=== PATIENT | female | born 1965 | race Caucasian/White ===

== ENCOUNTER 2024-07-30 08:17 | Inpatient (IN) | payer MEDICAID, SELFPAY ==
[2024-07-30] VITALS (19 sets, daily range): BP systolic 107–180; BP diastolic 62–132; PULSE 60–113; RESP 11–19; TEMP 36–37; O2SAT 79–100; BMI 30.9
--- NOTE | 2024-07-30 08:32 | W.ED.GENAD ---
Discharge Plan Disposition Patient Disposition: Admit to [facility] Discharge Details Clinical Impression: Food impaction of esophagus Attending Provider: Ryan Perry Primary Care Provider: None,None ED Provider: Denny Khoury [facility] General Date/Time Provider Initiated Documentation: 07/30/24 08:32. HPI Narrative: MDM This is an overall very well-appearing normothermic and nontachycardic 59-year-old female with nausea vomiting foreign body sensation concerning for esophageal food impaction for which patient well COVID general surgery for EGD. She is handling her secretions. Her labs are within normal limits. She has no pain out of proportion to suggest necrotizing soft tissue infection. Patient received ondansetron. Will defer glucagon and effervescent beverages. I considered ACS however pain is most likely secondary to her food bolus. No fevers to suggest pneumonia. No rash to abdomen to suggest zoster. Not an alcoholic to suggest pancreatitis. No abdominal pain to suggest intra-abdominal infection so I did not feel that the patient required a CT scan. I discussed patient's care with Dr. Steele who graciously agreed to accept the patient to day surgery. HPI This is a previously healthy 59-year-old female arrived to the emergency department via private vehicle in the setting of nausea and vomiting that began last night. Patient says she has been unable to keep down water. She has had similar symptoms in the past but they have generally resolved on their own. Last night she tried eating some steak and potatoes. She has been unable to drink any liquids subsequently. She is having no abdominal pain. Exam General: Well-appearing in no acute distress speaking in complete sentences. Head: Normocephalic, atraumatic. Eye: Extraocular eye movements intact. No conjunctival injection. No scleral icterus. Ear, nose, mouth, throat: Grossly normal inspection. Normal voice, handling secretions normally. Neck: Trachea midline. Cardiovascular: Well-perfused distal extremities. Respiratory: Nonlabored respiration. Clear lungs Gastrointestinal: Nondistended abdomen. Soft nontender abdomen. Musculoskeletal: No edema. Moving all 4 extremities spontaneously. Skin: Normal for age and race, grossly normal temperature and turgor. No acute rash. Neurologic: Alert and appropriate, no apparent acute deficits. Psychiatric: Mood and manner are appropriate. Grooming and personal hygiene are appropriate. Related Data Home Medications ?Medication ?Instructions ?Recorded ?Confirmed Unknown [No Known Home Meds] 05/24/14 07/30/24 Allergies Allergy/AdvReac Type Severity Reaction Status Date / Time niacin Allergy Unknown Unknown Unverified 07/30/24 10:29 Penicillins Allergy Skin Rash Unverified 07/30/24 10:29 General Stated Complaint: ThroatFB DARVIN: 3 Course Vital Signs Vital signs: Vital Signs Temperature 36.9 C 07/30/24 08:28 Pulse 80 07/30/24 08:28 Respiratory Rate 18 07/30/24 08:28 Blood Pressure 178/100 H 07/30/24 08:28 Pulse Oximetry 98 07/30/24 08:28 Temperature 36.9 C 07/30/24 08:28 Temperature Source Oral 07/30/24 08:28 Pulse 80 07/30/24 08:28 Respiratory Rate 18 07/30/24 08:28 Blood Pressure 178/100 H 07/30/24 08:28 Blood Pressure Position Sitting 07/30/24 08:28 Pulse Oximetry 98 07/30/24 08:28 Oxygen Delivery Method Room Air 07/30/24 08:28 Oxygen Flow Rate 0 07/30/24 08:28 Pain Level 6 07/30/24 08:28 Medical Decision Making Quality:SDOH Health Related Social Needs: No Data to Display PFSH All Active Problems Distal esophageal obstruction due to foreign body (Acute) Esophageal foreign body (Acute) Medical History Migraines HTN (hypertension) Surgical History H/O excision of ganglion cyst H/O: hysterectomy Social History Smoking/Tobacco Use Status: Never Smoking risk assessment performed?: Yes Alcohol Intake: current Alcohol Intake frequency: a few times a month Alcohol type: beer Drug use: Never Substance use type: does not use Do you feel safe at home: Yes Do you feel safe in your relationship?: Yes
[2024-07-30 09:00] LABS: BUN 11 mg/dL (7-18); Calcium 9.1 mg/dL (8.5-10.1); Chloride 107 mmol/L (98-107); Estimated GFR 64.09 (mL/min/1.73m2); Glucose 122 mg/dL (74-106); Potassium 3.8 mmol/L (3.5-5.1); Sodium 143 mmol/L (136-145)
[2024-07-30 09:10] LABS: Abs Immature Grans 0.02 10^3/uL (0.0-0.06); Absolute Basophil Count 0.01 10^3/uL (0.0-0.2); Absolute Eosinophil Count 0.14 10^3/uL (0.0-0.7); Absolute Lymphocyte Count 2.45 10^3/uL (1.2-3.4); Absolute Monocyte Count 0.45 10^3/uL (0.1-0.8); Absolute Neutrophil Count 5.76 10^3/uL (1.2-6.7); Basophils % 0.1 %; Eosinophils % 1.6 %; HCT 42.7 % (36.0-46.0); HGB 13.6 g/dL (11.2-15.7); Immature Grans % 0.2 %; Lymphocytes % 27.7 %; MCH 28.8 pg (27.0-33.0); MCHC 31.9 % (32.0-36.0); MCV 91 fL (80-95); MPV 10.1 fL (8.0-11.0); Monocytes % 5.1 %; Neutrophils % 65.3 %; Platelet Count 228 10^3/uL (130-400); RBC 4.72 10^6/uL (3.93-5.22); RDW 12.6 % (11.7-14.6); RDW-SD 41.9 fL; WBC 8.83 10^3/uL (4.4-10.8)
--- NOTE | 2024-07-30 09:30 | W.PM.HP.N ---
Date of service: 07/30/24 Time of Service: 09:30 Assessment and Plan Assessment and plan (1) Esophageal foreign body: Status: Acute Assessment and plan: Informed consent is obtained for the procedural (explained in simple layman's terms that the pt. and/or family could understand) explaining risks vs benefits and alternatives to the procedure and consequences if we do not do the procedure and need/rational for the procedure. Risks include but are not limited to: bleeding, infection, perforation of esophagus, stomach, colon, small intestines, bronchus or trachea, or PTX. This would necessitate emergency surgery to repair the damage w/ possible ostomy; and other associated complications w/ the required surgery. Also complications of anesthesia including aspiration, RI/CVA/. Depending on what we find today we may or may not admit her postoperatively for IV hydration and PPI. Patient states she has been unable to tolerate liquids since yesterday. (2) Distal esophageal obstruction due to foreign body: Status: Acute History of Present Illness Narrative: Patient came to the ER today complaining of pain and difficulty swallowing. She states that this has been coming on for over a year. Today it has become so severe that she cannot swallow and cannot handle her secretions and is spitting into a bag. She denies that it is food impaction. She states that she has been having problems swallowing for and being able to swallow food for quite some time. She is losing weight. She has not noticed any blood in her stools. She said she spit up a little blood yesterday. She takes ibuprofen on a semiregular basis but not every day. She does have a lot of problems with headaches. She is a former smoker but was very casually and states she maybe smoked 2 packs her whole life. She does drink alcohol on a again on a maybe every other day basis. She was using Gummies on a semiregular basis but not has not used them recently. She is new to the [facility] and has not established any health care. She was on metoprolol when she lived in [place] but has not continued this medication. She thinks she was on it for her blood pressure. It may have been for palpitations. She is not currently on any medications. Past surgical history significant for , cyst removal from her foot and reconstruction on her right hand after a cat bite. She denies any problems with anesthesia. She denies heart attack or stroke. She denies being diabetic. She denies any asthma or sleep apnea. Review of Systems All systems reviewed & are unremarkable except as noted in HPI and below PFSH All Active Problems Distal esophageal obstruction due to foreign body (Acute) Esophageal foreign body (Acute) Medical History Migraines HTN (hypertension) Surgical History H/O excision of ganglion cyst H/O: hysterectomy Social History Smoking/Tobacco Use Status: Never Smoking risk assessment performed?: Yes Alcohol Intake: current Alcohol Intake frequency: a few times a month Alcohol type: beer Drug use: Never Substance use type: does not use Do you feel safe at home: Yes Do you feel safe in your relationship?: Yes Meds Allergies and Home Medications Allergies Allergy/AdvReac Type Severity Reaction Status Date / Time niacin Allergy Unknown Unknown Unverified 07/30/24 10:29 Penicillins Allergy Skin Rash Unverified 07/30/24 10:29 Home Medications ?Medication ?Instructions ?Recorded ?Confirmed ?Type Unknown [No Known Home Meds] 05/24/14 07/30/24 History Exam Narrative Exam Narrative: PHYSICAL EXAM GENERAL APPEARANCE: Alert, healthy appearance, oriented, x 3,? in no acute distress HYDRATION: Well hydrated HEAD, EYES, EARS, NECK, THROAT: Head is normocephalic, pupils equal, round, reactive to light and accommodation, ocular movement intact, sclera clear and no jaundice. ?Dentition intact. LUNGS: normal respiration/normal chest excursion. ?Clear to auscultation bilaterally. ?No wheeze. ?HEART: Regular rate and rhythm. no murmurs ABDOMEN: soft and non-tender to palpation.? Normal bowel sounds.? She is not able to swallow her secretions and is spitting up in 2 EyeBag constantly. Results Labs 07/30/24 08:30 07/30/24 08:30 Labs: Laboratory Results - last 24 hr 07/30/24 08:30 WBC 8.83 RBC 4.72 Hgb 13.6 Hct 42.7 MCV 91 MCH 28.8 MCHC 31.9 L RDW 12.6 Plt Count 228 MPV 10.1 Immature Gran % 0.2 Neutrophils % 65.3 Lymphocytes % 27.7 Monocytes % 5.1 Eosinophils % 1.6 Basophils % 0.1 Nucleated RBC % 0.0 Absolute Neutrophils 5.76 Absolute Lymphocytes 2.45 Absolute Monocytes 0.45 Absolute Eosinophils 0.14 Absolute Basophils 0.01 Sodium 143 Potassium 3.8 Chloride 107 Carbon Dioxide 26.0 Anion Gap 10.0 BUN 11 Creatinine 1.0 Est GFR (CKD-EPI 2020) 64.09 Glucose 122 H Calcium 9.1 Last Vital Signs Temp 36.9 C 07/30/24 08:28 Pulse 80 07/30/24 08:28 Resp 18 07/30/24 08:28 BP 178/100 H 07/30/24 08:28 Pulse Ox 98 07/30/24 08:28 PAWSS Have you Been Recently Intoxicated or Drunk Within the Last 30 days?: No Have you Ever Experienced Previous Episodes of Alcohol Withdrawal?: No Have you ever Experienced Withdrawal Seizures?: No Have you ever Experienced Delirium Tremens(DT)s?: No Have you ever undergone Alcohol Rehabilitation Treatment (i.e, inpt ot outpatient treatment programs)?: No Have you ever Experienced Blackouts?: No Have you ever Combined Alcohol with other Downers within the last 90 days?: No Have you ever Combined Alcohol with any other Substance of Abuse during the last 90 days?: No Positive Blood Alcohol level on Presentation? [PCS.BAL]: No Evidence of Increased Autonomic Activity (i.e. HR>120, tremor, sweating, agitation, nausea)?: No Result: 0 Time Spent Time spent with Patient: 40-54 minutes Time was spent: preparing to see the patient(eg.review tests), obtaining and/or reviewing separately otained hiistory, ordering medications,tests, procedures, referring, communicating with other health customer care professional, indepentently interpreting results, counseling the patient, care coordination and other
[2024-07-30] MEDS: Ondansetron 4 MG/2 ML VIAL IVP (09:39)
[2024-07-30] MEDS: Normal Saline Flush 10 ML SYR IVP ×3 (10:44→20:46)
[2024-07-30] MEDS: Normal Saline 500 ML 80 ML IV (10:44)
[2024-07-30] MEDS: Pantoprazole 40 MG VIAL IVP ×2 (10:58→20:39)
--- NOTE | 2024-07-30 11:34 | ANES.PREOP_ITS ---
General Info Date of Service Date Performed: 07/30/24 Height: 5 ft 4 in Weight: 81.647 kg Body Mass Index (BMI): 30.9 Surgical Procedure: Operation Date: 07/30/24 10:05 Proposed Procedure Side Surgeon p Gastroscopy/Removal Foreign Body Sailaja Steele, DO Actual Procedure Side Surgeon p Gastroscopy/Removal Foreign Body Sailaja Steele, DO Pre-Op Diagnosis Post-Op Diagnosis Esophageal foreign body Meds Allergies and Home Medications Allergies Allergy/AdvReac Type Severity Reaction Status Date / Time niacin Allergy Unknown Unknown Unverified 07/30/24 10:29 Penicillins Allergy Skin Rash Unverified 07/30/24 10:29 Home Medication ?Medication ?Instructions ?Recorded Unknown [No Known Home Meds] 05/24/14 Current Visit Medications: Current Medications Generic Name Dose Route Start Last Admin Trade Name Freq PRN Reason Stop Dose Admin Sodium Chloride 500 mls @ 80 mls/hr 07/30/24 10:15 07/30/24 10:44 Saline 500ml Bag IV 80 mls/hr INFUSION AYAN Administration IV Miscellaneous Supplies 1 each 07/30/24 10:15 Iv Access IV DIRECTED AYAN Sodium Chloride 0 ml 07/30/24 10:09 07/30/24 10:58 Normal Saline Flush 10 Ml Syr IVP 10 ml PRN PRN Administration Sodium Chloride 0 ml 07/30/24 20:00 Normal Saline Flush 10 Ml Syr IVP BID AYAN Sodium Chloride 0 ml 07/30/24 10:09 Normal Saline 10 Ml Vial IJ DIRECTED PRN PFSH Active Problems Active Problems: Problem Status Onset Code Distal esophageal obstruction due to foreign body Acute T18.108A, W44.9XXA Esophageal foreign body Acute T18.108A Medical History Medical History Migraines HTN (hypertension) Surgical History Surgical History H/O excision of ganglion cyst H/O: hysterectomy Tobacco Smoking/Tobacco Use Status: Never Alcohol Alcohol Intake: current Alcohol intake frequency: a few times a month Alcohol type: beer Substance Use Substance use: Never Substance use type: does not use Vital Signs and Lab Results Vital Signs Most Recent Vital Signs in EMR: Most Recent Vital Signs Temp Pulse Resp BP Pulse Ox 36.4 C L 65 18 164/79 H 96 07/30/24 10:30 07/30/24 10:30 07/30/24 10:30 07/30/24 10:30 07/30/24 10:30 Lab Results 07/30/24 08:30 07/30/24 08:30 Blood Type / Crossmatch: 2 No Data to Display Complete Blood Count: 2 White Blood Count 8.83 10^3/uL (4.4-10.8) 07/30/24 08:30 Red Blood Count 4.72 10^6/uL (3.93-5.22) 07/30/24 08:30 Hemoglobin 13.6 g/dL (11.2-15.7) 07/30/24 08:30 Hematocrit 42.7 % (36.0-46.0) 07/30/24 08:30 Platelet Count 228 10^3/uL (130-400) 07/30/24 08:30 Complete Metabolic Panel: 2 Sodium 143 mmol/L (136-145) 07/30/24 08:30 Potassium 3.8 mmol/L (3.5-5.1) 07/30/24 08:30 Chloride 107 mmol/L (98-107) 07/30/24 08:30 Carbon Dioxide 26.0 mmol/L (21.0-32.0) 07/30/24 08:30 BUN 11 mg/dL (7-18) 07/30/24 08:30 Creatinine 1.0 mg/dL (0.55-1.02) 07/30/24 08:30 Est GFR (CKD-EPI 2020) 64.09 (mL/min/1.73m2) 07/30/24 08:30 Calcium 9.1 mg/dL (8.5-10.1) 07/30/24 08:30 Glucose 122 mg/dL (74-106) H 07/30/24 08:30 Liver Function Panel: 2 No Data to Display Coagulation Panel: 2 No Data to Display Cardiac Panel: 2 No Data to Display Arterial Blood Gas: 2 No Data to Display Venous Blood Gas: 2 No Data to Display Pancreas Panel: 2 No Data to Display Thyroid Panel: 2 No Data to Display Infectious Disease: 2 No Data to Display Blood Cultures: 2 No Data to Display Toxicology Panel: 2 No Data to Display Anesthesia Assessment and Plan Anesthesia History Personal History: No History of Anesthesia Complications Family History: Other Exercise Tolerance Exercise Tolerance: Metabolic Equivalents>4 Pertinent Negatives Pertinent Negatives: No Major Cardiovascular Symptoms or Complaints, No Major Pulmonary Symptoms or Complaints and No History of CVA/TIA Cardiac & Pulmonary Exam Cardiac Exam: Normal S1/S2 Heart Sounds Pulmonary Exam: Clear Bilateral Breath Sounds Implantable Cardiac Device Does patient have a Pacemaker or an ICD?: No Airway Exam Known Difficult Airway: No Mallampati Class: 2 Mouth Opening: Normal (> 3cm) Thyromental Distance: Greater than 3 cm Neck Range of Motion: Full ROM Neck Circumference: Normal Teeth Condition: Normal Dentition ASA Classification ASA Score: ASA 2 Emergency Case?: Yes NPO Status NPO Status: Full Stomach Anesthesia Plan Resuscitation Status: Full Code Anesthesia Technique: General Anesthesia Airway Planned: Endotracheal Tube Monitors Used: Standard Monitors
--- NOTE | 2024-07-30 13:03 | STOM_PTH ---
PATIENT: Gema Gant LOC: [facility]#:[id number] AGE/SX: 59/F ROOM: RE07/30/[address]: Ryan Perry MD : 1965 BED: A DIS: 07/31/2024 SPEC #: [id number] RECD: 07/30/24 16:15 STATUS: DARIAN GRAJEDA #: [id number] MARISSA: 07/30/24 13:[address]: Ryan Perry DEPT: Surgical Specimen RECD BY: Malka Cash ENTERED: 07/30/24 17:04 SP TYPE: STOMACH OTHR DR: Sailaja Crenshaw Tissues: 1 - BIOPSY BOWEL 2 - STOMACH BIOPSY 3 - STOMACH BIOPSY 4 - ESOPHAGUS BIOPSY 5 - ESOPHAGUS BIOPSY Procedures: GROSS AND MICRO LEVEL 4 Comments: [id number]
[2024-07-30] MEDS: FLUCONAZOLE 200 MG/100 ML BAG 100 MG IVPB (13:10)
--- NOTE | 2024-07-30 14:37 | W.ANESPOSTOP ---
Postoperative Evaluation Date, Time and Location Date Performed: 07/30/24 Time Performed: 14:37 Patient Location: Day Surgery Unit Vital Signs Most Recent Imported Vital Signs: Most Recent Vital Signs Temp Pulse Resp BP Pulse Ox 36.0 C L 60 19 136/71 97 07/30/24 14:25 07/30/24 14:25 07/30/24 14:25 07/30/24 14:25 07/30/24 14:25 Pain Score Most Recent Pain Score: Most Recent Pain Score Pain Level 0 07/30/24 14:25 Assessment Mental Status: Awake (Alert & Oriented to Patient Baseline) Airway and Respiratory Function: Patent airway with normal (patient baseline) respiratory exam Cardiovascular Function: Hemodynamically Stable Hydration Status: Adequately Hydrated Nausea & Vomiting: No Nausea or Vomiting Pain: Pt. Denies Any Pain Peripheral Nerve Block: Patient did not receive a nerve block Postoperative Comments:: Discussed split upper right lip from intubation. Patient aware that airway was filling with saliva and food particulate and I was moving fast. Dsicussed care. Patient cleared to go to floor.
--- NOTE | 2024-07-30 15:26 | PHA.REVIEW2 ---
Pharmacy Admission Review Admission Clinical Review Admission Pharmacy Review: Distal esophageal obstruction due to foreign body (Acute) Esophageal foreign body (Acute) niacin Allergy (Unknown, Unverified 07/30/24 10:29) Unknown Penicillins Allergy (Unverified 07/30/24 10:29) Skin Rash Resuscitation Status Full Code Height 5 ft 4 in Weight 81.647 kg Pharmacy Admission Review Renal Dosing Renal Dosing: BUN 11 mg/dL (7-18) 07/30/24 08:30 Creatinine 1.0 mg/dL (0.55-1.02) 07/30/24 08:30 Medications needing adjustments: Reviewed (CrCl 61.07 mL/min) List of meds needing interventions: Current medications are okay Anticoagulation Anticoagulation: Hgb 13.6 g/dL (11.2-15.7) 07/30/24 08:30 Hct 42.7 % (36.0-46.0) 07/30/24 08:30 Plt Count 228 10^3/uL (130-400) 07/30/24 08:30 Creatinine 1.0 mg/dL (0.55-1.02) 07/30/24 08:30 DVT Prophylaxis: Reviewed (SCDs - POD#0) Opiate Usage Evaluate Pain Scale/Pains Meds: Reviewed (morphine 2mg IVP PRN - no doses give so far) Relevant Labs Relevant Labs: Sodium 143 mmol/L (136-145) 07/30/24 08:30 Potassium 3.8 mmol/L (3.5-5.1) 07/30/24 08:30 Chloride 107 mmol/L (98-107) 07/30/24 08:30 Electrolytes, C-Reactive P, ESR: Reviewed (glucose 122 at 0830) Cardiac Review BP, HR, EF%: Reviewed (BP and HR WNL) QTc Review QTc: Reviewed (No EKG on file) IV to PO Switch IV Medications: Reviewed (APAP, morphine, ondansetron and pantoprazole) Home Meds Home Med List reviewed: Reviewed Relevent Home Meds Not ordered & why?: No known home meds Current Meds Current Medication Order Review: Reviewed
[2024-07-30] MEDS: Normal Saline 1,000 ML 75 ML IV (18:54)
[2024-07-30] MEDS: ACETAMINOPHEN 1,000 MG/100 ML BAG 400 MG IVPB (19:36)
[2024-07-31 06:55] VITALS: BP 108/73; PULSE 60; RESP 16; TEMP 36.9; O2SAT 98
[2024-07-31] MEDS: Normal Saline 1,000 ML 75 ML IV (07:23)
--- NOTE | 2024-07-31 07:26 | W.PM.PROGNOT ---
Date of Service Date of service: 07/31/24 Time of Service: 07:26 Assessment and Plan Assessment and plan (1) Esophageal foreign body: Status: Acute Assessment and plan: POD #1 s/p EGD Sucralfate slurry ordered. Will advance to full liquid diet Activity as tolerated. Will d/c home later today. Will continue PPI and sulcralfate tx upon discharge. (2) Distal esophageal obstruction due to foreign body: Status: Acute Subjective Subjective Interval history since last seen: Arrived with Gema eating a popsicle. She states overall she is doing okay this morning. She is eager to have more to eat, she is hungry. Exam Const General: cooperative, healthy appearing and comfortable Orientation: alert and oriented x3 Resp Effort & Inspection: normal respiratory effort, no audible wheezes and no cough GI Inspection: normal to inspection and non-distended Palpation: soft, no guarding and nontender Objective Last Vital Signs Temp 36.9 C 07/31/24 06:55 Pulse 60 07/31/24 06:55 Resp 16 07/31/24 06:55 BP 108/73 07/31/24 06:55 Pulse Ox 98 07/31/24 06:55 Laboratory Results - last 24 hr 07/30/24 08:30 WBC 8.83 RBC 4.72 Hgb 13.6 Hct 42.7 MCV 91 MCH 28.8 MCHC 31.9 L RDW 12.6 Plt Count 228 MPV 10.1 Immature Gran % 0.2 Neutrophils % 65.3 Lymphocytes % 27.7 Monocytes % 5.1 Eosinophils % 1.6 Basophils % 0.1 Nucleated RBC % 0.0 Absolute Neutrophils 5.76 Absolute Lymphocytes 2.45 Absolute Monocytes 0.45 Absolute Eosinophils 0.14 Absolute Basophils 0.01 Sodium 143 Potassium 3.8 Chloride 107 Carbon Dioxide 26.0 Anion Gap 10.0 BUN 11 Creatinine 1.0 Est GFR (CKD-EPI 2020) 64.09 Glucose 122 H Calcium 9.1 PAWSS Have you Been Recently Intoxicated or Drunk Within the Last 30 days?: No Have you Ever Experienced Previous Episodes of Alcohol Withdrawal?: No Have you ever Experienced Withdrawal Seizures?: No Have you ever Experienced Delirium Tremens(DT)s?: No Have you ever undergone Alcohol Rehabilitation Treatment (i.e, inpt ot outpatient treatment programs)?: No Have you ever Experienced Blackouts?: No Have you ever Combined Alcohol with other Downers within the last 90 days?: No Have you ever Combined Alcohol with any other Substance of Abuse during the last 90 days?: No Positive Blood Alcohol level on Presentation? [PCS.BAL]: No Evidence of Increased Autonomic Activity (i.e. HR>120, tremor, sweating, agitation, nausea)?: No Result: 0 Time Spent with Patient Time Spent with Patient: <25 minutes Time was spent: preparing to see the patient(eg.review tests), obtaining and/or reviewing separately otained hiistory and counseling the patient
[2024-07-31] MEDS: Sucralfate 1 GM TAB PO ×2 (08:15→12:32)
[2024-07-31] MEDS: Normal Saline Flush 10 ML SYR IVP (08:16)
[2024-07-31] MEDS: Pantoprazole 40 MG VIAL IVP (08:16)
[2024-07-31] MEDS: ACETAMINOPHEN 1,000 MG/100 ML BAG 400 MG IVPB (09:28)
--- NOTE | 2024-07-31 13:02 | INITIAL_ITS ---
Date of service: 07/31/24 Time of Service: 11:00 Care Management Initial Assmt Initial Assessment Reason for Hospitalization: food impaction of esophagus Functional Status/Living Situation Patient Presentation: Gema was brought to the ED yesterday with c/o pain and difficulty swallowing for some time. Yesterday, it was so severe that she was unable to swallow, even her own secretions. She has had nausea and vomiting and has been losing weight. Yesterday afternoon she underwent an EGD. Today she is tolerating full liquids, and expects to go home later in the day. Gema was up and moving in her room when CM met with her today. She is feeling remarkably better. Gema was very pleasant with CM. CM discussed referring Gema to a PCP for outpatient care and f/u. She hesitantly accepted this offer. 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[employer]) Instrumental Activities of Daily Living (ADLs): Independent Medications Medication Management: No Issues/Barriers identified Advance Directives Advance Directives: Do you have an Advance Directive: N 02/27/14 10:23 AD On File at [facility]: N 02/27/14 10:23 Date Asked 07/30/24 07/30/24 08:22 AD Date Reviewed COLST On File at [facility] COLST Date Scanned Code Status Resuscitation Status Full Code Insurance Coverage/Financial Issues Insurance: [place] Medicaid Care Team Visit Care Team Role Provider Type None None Primary Care Provider NON-[facility] STAFF PHYSICIAN Denny Khoury MD Emergency Provider [facility] STAFF PHYSICIAN Ryan Perry MD Attending Provider [facility] STAFF PHYSICIAN Sailaja Steele, DO Admit Provider OSTEOPATHIC DOCTOR Discharge Potential Discharge Needs: PCP F/U Appt and Surgical F/U Appt Anticipated Barriers to Discharge: None Identified Patient/Family Education Needs: Review discharge instructions, discuss Ask Me Three Transportation: Private vehicle Plan: Anticipate that Gema will discharge home later today with no new services. She will be encouraged to establish with a PCP, and to f/u with the surgeon. She will transport home in a private vehicle with her daughter. CM will continue to follow. PFSH All Active Problems Esophagitis (Acute) Distal esophageal obstruction due to foreign body (Acute) Esophageal foreign body (Acute) Medical History Migraines HTN (hypertension) Surgical History H/O excision of ganglion cyst H/O: hysterectomy Social History Smoking/Tobacco Use Status: Never Smoking risk assessment performed?: Yes Alcohol Intake: current Alcohol Intake frequency: a few times a month Alcohol type: beer Drug use: Never Substance use type: does not use Housing: house Do you feel safe at home: Yes Do you feel safe in your relationship?: Yes Readmission Within the Past 30 Days Yes or No: No SDOH(Care Management) Screening Will the Patient Participate in the Screening?: Yes Do you worry about having a steady place to live?: no Problems where you live: no known problems In the past 12 months, have you had to go without electric, gas, oil or water in your home?: no Have you or anyone in your house had to go without enough food to eat?: no Has lack of transportation kept you from medical appointments or from doing things needed for daily living?: no Has anyone in your support network made you feel unsafe for any reason?: no
--- NOTE | 2024-07-31 13:48 | DSE_ITS ---
Date of service: 07/31/24 Time of Service: 13:51 DS: Diagnosis Discharge Diagnosis (1) Esophagitis: Status: Acute Asessment and Plan: Continue proton pump and vision therapy and sucralfate; postoperative outpatient follow-up with Dr. Steele Discharge Plan Disposition Patient Disposition: Home Condition: Good Discharge Details Reason For Visit: Cannot swallow Admit Date/Time: 07/30/24 14:26 Admit Provider: Sailaja Steele Attending Provider: Ryan Perry Primary Care Provider: None,None Hospital Course Hospital Course: Angela is a 59-year-old woman has been experiencing intermittent dysphagia. She came to the emergency department with increasing discomfort, and a globus sensation it seemed like a food impaction. She underwent EGD and clearance of the esophagus, with confirmed diagnosis of esophagitis. She started on proton pump inhibitor therapy and sucralfate. She was able to tolerate thickened liquids without any difficulty and was discharged home with outpatient follow-up Home Meds and New Rx's Prescriptions: New omeprazole 40 mg capsule,delayed release(DR/EC) 40 mg PO DAILY Qty: 60 0RF Rx Instructions: Open 1 capsule daily, and sprinkle contents into water, fruit juice or apple sauce. Consume without chewing. sucralfate 1 gram tablet 1 g PO QACHS Qty: 120 0RF Rx Instructions: Gently crush 1 tablet and mix with warm water. Consume slurry. Use this with every meal and at bedtime Discharge Instructions Instructions: Esophagitis, Dysphagia (DC), Thickening Liquids for Dysphagia Diet Additional Instructions: Gema, it was very nice meeting you and your family in the hospital, and I hope you make a quick recovery from your procedure. As you probably recall, I mentioned starting you on 2 medications to take as an outpatient. I have sent prescriptions down to [facility] for omeprazole (this is a relative of the pantoprazole that you are started on in the hospital) and sucralfate. The omeprazole capsule can be opened, and the little pellets inside can be consumed without the need to swallow a pill. Similarly the sucralfate can be crushed up and made into a slurry to help with swallowing. Over the next few days, I recommend that you stick with a very simple diet that is easy to pass down to your stomach. As I mentioned, I think about things that you would typically eat with a spoon. I attached a little bit of information here about dysphagia, which basically describes swallowing difficulty, as well as a dysphagia diet and the diagnosis of esophagitis. Hopefully the new medications will help with your symptoms, and the biopsies that Dr. Steele performed will shed some light on the origin of the problem. If you need anything at all, please do not hesitate to ask, otherwise we look forward to seeing you in the office at your follow-up visit on the Referrals: Sailaja Steele DO [OSTEOPATHIC DOCTOR] - (August 15 at 11:30 AM) Activity:: Activity as Tolerated Equipment/Supplies:: No Equipment Needed Diet:: Dysphagia diet DS: Summary Time Spent with Patient providing and/or coordinating discharge services: Greater than 30 minutes Status at Discharge Functional status at discharge: independent ambulation Overall status at discharge: patient is back to baseline Mental Status: mental status grossly normal Speech and Movement: speech and movement normal Mood: congruent mood Affect: normal affect Quality:SDOH Health Related Social Needs: No Data to Display Exam Neck Other: Soft and supple, no lymphadenopathy voice is strong, she manages her airway without any difficulty Psych Mental Status: mental status grossly normal Speech and Movement: speech and movement normal Mood: congruent mood Affect: normal affect DS: Data Vitals/I&O Vitals and I&O: Vital Signs Temperature 98.4 F 07/31/24 06:55 Temperature Source Tympanic 07/31/24 06:55 Pulse 60 07/31/24 06:55 Pulse Rhythm Regular 07/30/24 14:19 Pulse 68 07/30/24 13:41 Respiratory Rate 16 07/31/24 06:55 Respiratory Effort Normal, Non-Labored 07/30/24 14:19 Respiratory Depth Normal 07/30/24 14:19 Respiratory Pattern Normal 07/30/24 14:19 Blood Pressure 108/73 07/31/24 06:55 Blood Pressure Mean 112 07/30/24 13:41 Blood Pressure Position Sitting 07/30/24 08:28 Pulse Oximetry 98 07/31/24 06:55 Respiratory End-tidal CO2 42 07/30/24 13:41 Oxygen Delivery Method Room Air 07/31/24 06:55 Oxygen Flow Rate 0 07/31/24 06:55 Pain Level 0 07/30/24 23:44 Intake & Output 07/30/24 07/31/24 07/31/24 23:59 11:59 23:59 Intake Total 600 / 600 1460 / 1460 Output Total 300 / 300 400 / 800 400 / 800 Balance 300 / 300 1060 / 660 -400 / 660 Weight 190 lb 7.67 oz 182 lb 12.211 oz Intake: IV 600 / 600 1100 / 1100 Oral 360 / 360 Output: Urine 300 / 300 400 / 800 400 / 800 Other: Urine Color Yellow Straw Yellow Urine Appearance Clear Clear Clear Urine Odor Normal Strong Normal Emesis Description None PFSH All Active Problems Esophagitis (Acute) Distal esophageal obstruction due to foreign body (Acute) Esophageal foreign body (Acute) Medical History Migraines HTN (hypertension) Surgical History H/O excision of ganglion cyst H/O: hysterectomy Social History Smoking/Tobacco Use Status: Never Smoking risk assessment performed?: Yes Alcohol Intake: current Alcohol Intake frequency: a few times a month Alcohol type: beer Drug use: Never Substance use type: does not use Housing: house Do you feel safe at home: Yes Do you feel safe in your relationship?: Yes Time Spent with Patient Time Spent with Patient: <45 minutes Time was spent: preparing to see the patient(eg.review tests), ordering medications,tests, procedures, counseling the patient and care coordination
--- NOTE | 2024-07-31 14:03 | W.PM.PROGNOT ---
Date of Service Date of service: 07/31/24 Time of Service: 14:03 Assessment and Plan Assessment and plan (1) Esophagitis: Status: Acute Assessment and plan: She is tolerating the advance of her diet a little bit today and she is tolerating the new proton pump inhibitor and sucralfate treatment. Will discharge her home on a dysphagia diet and follow-up in the office Subjective Subjective Interval history since last seen: We looks great today. Her swallowing seems much more comfortable than it sounds like it was yesterday. She has been tolerating simple liquids without any difficulty. Exam Neck Other: Neck is soft and supple. Lung sounds are clear. Objective Last Vital Signs Temp 98.4 F 07/31/24 06:55 Pulse 60 07/31/24 06:55 Resp 16 07/31/24 06:55 BP 108/73 07/31/24 06:55 Pulse Ox 98 07/31/24 06:55 PAWSS Have you Been Recently Intoxicated or Drunk Within the Last 30 days?: No Have you Ever Experienced Previous Episodes of Alcohol Withdrawal?: No Have you ever Experienced Withdrawal Seizures?: No Have you ever Experienced Delirium Tremens(DT)s?: No Have you ever undergone Alcohol Rehabilitation Treatment (i.e, inpt ot outpatient treatment programs)?: No Have you ever Experienced Blackouts?: No Have you ever Combined Alcohol with other Downers within the last 90 days?: No Have you ever Combined Alcohol with any other Substance of Abuse during the last 90 days?: No Positive Blood Alcohol level on Presentation? [PCS.BAL]: No Evidence of Increased Autonomic Activity (i.e. HR>120, tremor, sweating, agitation, nausea)?: No Result: 0 Time Spent with Patient Time Spent with Patient: <25 minutes Time was spent: preparing to see the patient(eg.review tests), counseling the patient and care coordination
--- NOTE | 2024-07-31 16:21 | CHAPLAIN ---
Gema had a few family members in the room with her when I visited. She lives in [place] and said she expects to be discharged this afternoon, hopefully before the weather makes travel difficult, she said. I explained my role and offered support.
--- NOTE | 2024-08-01 16:13 | W.PM.ENDDOP ---
Date of service: 07/30/24 Time of Service: 12:30 Endoscopy Report DATE OF PROCEDURE: 07/30/24 PRE-OP DIAGNOSIS: esophageal foreign body/esophageal obstruction POST-OP DIAGNOSIS: other (esophageal foreign body/severe esophagitis and esophageal ulceration class D /esophageal stricture/hiatal hernia) PROCEDURE: egd and FB removal and biopsy SURGEON: Sailaja Steele ANESTHESIA TYPE: General LMA/ETT ESTIMATED BLOOD LOSS: 2 PATHOLOGY: other COMPLICATIONS: None DISPOSITION: PACU PROCEDURE DESCRIPTION: Informed consent was obtained from the pt; explaining the benefits and Risks: bleeding, infections, perforations {which could require surgery or antibiotics and prolonged hospital stay}, or ostomy, and complications of anaesthesia, shavon aspiration). The patient was take to the procedure room and placed in a supine position. Monitors were applied and a time out was done. The patients name, date of , procedure type, allergies to medications and metal in their body was reviewed. GETA was administered per [employer]. An Olympus gastroscope (see RN notes for scope #) was advanced through the oropharynx which was grossly normal, and passed into the esophagus. The proximal and mid-esophagus were normal. There is chicken and brocoli in the mid-esophagus. This is partial removed w/ 3-pronged grapser. The remander of the bolus was passed into the stomach w/ irrigation. The distal esophagus shows severe esophagitis with ulceration Grade D, and multiple mucosal breaks and the ulceration is cirumfrntial. There is no active bleeding. There is narrowing of the GE junction in this area. There is also a small hiatal hernia ~2cm. The scope was advanced into the stomach and through the pylorus into the duidenum. The duodenum was noted to be midl esophagitis. Biopsies were done of the duodenal bulb.. The scope was retracted back into the stomach and biopsies were taken of the antrum. There were no gastritis/gastropathy/ ulcers/masses noted. The scope was retroflexed. The cardia and fundus were noted to be normal. There ~2cm a hiatal hernia noted. The scope was retracted back into the esophagus and biopsies were done of the GE junction (in all 4 quadrants) and distal esophagus (2cm above the GE junction) to rule out Sanders's. All specimens are retrieved and no bleeding was noted. The Z line was regular. The GE junction was at 36 cm. The scope was removed and the patient was woken up and taken back to [facility] in stable condition.
== END 2024-07-31 14:54 | disposition home or self-care (01) | DRG 395 ==
LOC: ER 10:23 → SUR 10:24 → MS 14:28
PROVIDERS: Admitting Provider Surgery; Emergency Provider Emergency Medicine; Visit Provider Surgery
PROC: 0DC68ZZ Extirpation of Matter from Stomach, Via Natural or Artificial Opening Endoscopic (ICD-10-PCS; CPT 43247; principal; 2024-07-30 10:00)
DX: T18.128A Food in esophagus causing other injury, initial encounter (principal); K21.00 Gastro-esophageal reflux disease with esophagitis, without bleeding; G43.909 Migraine, unspecified, not intractable, without status migrainosus; I10 Essential (primary) hypertension; W44.F3XA Food entering into or through a natural orifice, initial encounter; K22.89 Other specified disease of esophagus
CPT/HCPCS: 43247; 36415; 80048; 88305; 96374; 99285; 85025; J0131; J0330; J1450; J2003; J2405; J2470; J2704; J3010